=== PATIENT | female | born 1950 | race Caucasian/White ===

== ENCOUNTER 2023-11-11 20:40 | Emergency (ER) | payer MEDICARE, OTHER, SELFPAY ==
[2023-11-11] VITALS (7 sets, daily range): BP systolic 133–153; BP diastolic 68–94; PULSE 90–100; RESP 14; TEMP 37.4; O2SAT 95–97
--- NOTE | 2023-11-11 21:03 | XRR_ITS ---
PROCEDURE INFORMATION: Exam: XR Chest Exam date and time: 11/11/2023 9:19 PM Age: 73 years old Clinical indication: Fever and shortness of breath; Patient HX: SOB; Headache; Fever; Additional info: Fever aches SOB TECHNIQUE: Imaging protocol: Radiologic exam of the chest. Views: 1 view. COMPARISON: No relevant prior studies available. FINDINGS: Lungs: No consolidation. Nodular opacity overlying the left costophrenic angle and right midlung likely representing a calcified granuloma. Pleural spaces: Unremarkable. No pleural effusion. No pneumothorax. Heart/Mediastinum: Unremarkable. No cardiomegaly. Bones/joints: Unremarkable. XR/XR chest 1V portable [id number] IMPRESSION: No acute findings.
[2023-11-11] MEDS: sodium chloride 0.9% 500 ML 999 ML IV (21:53)
[2023-11-11] MEDS: ondansetron 2 mg/ML SDV 2 mL 4 MG IVP (21:53)
[2023-11-11 22:02] LABS: Basophils % 0.4 %; Eosinophils % 0.2 %; Hematocrit 42.7 % (36-47); Lymphocytes % 22.1 %; Mean Corpuscular HGB Conc 34.2 g/dL (30-55); Mean Corpuscular Hemoglobin 30.9 pg (27-33); Mean Corpuscular Volume 90.5 fl (85-98); Mean Platelet Volume 9.6 fL (7.4-10.4); Monocytes # 0.4 10^3/uL (0.2-0.9); Neutrophils # 3.18 10^3/uL (1.8-7.7); Neutrophils % 69.1 %; Nucleated Red Blood Cells % 0 %; Platelet Count 142 10^3/cmm (157-399); Red Blood Count 4.72 10^6/uL (3.85-5.65); Red Cell Distribution Width 12.2 % (12.1-15.1); White Blood Count 4.61 10^3/uL (3.29-11.43)
[2023-11-11 22:07] LABS: Bilirubin Urine Neg (Negative); Blood Urine Neg (Negative); Glucose Urine UA Norm (Normal); Ketones Urine 1+ (Negative); Leukocyte Esterase Urine Negative (Negative); Nitrate Urine Negative (Negative); Protein Urine Neg (Negative); Specific Gravity, Urine 1.005 (1.005-1.030); Urine Appearance Clear (CLEAR); Urine Color Yellow (Yellow); Urobilinogen Urine Neg (Negative); pH Urine 7 (5-7)
[2023-11-11 22:16] LABS: RBC Urine 0-4 /hpf (0-2)
[2023-11-11 22:17] LABS: Bacteria Urine 1+ /hpf; Mucus Urine TRACE /hpf; WBC Urine 0-4 /hpf (0-5)
[2023-11-11 22:21] LABS: Lactic Sepsis W/Reflex 0.9 mmol/L (0.5-2.2)
[2023-11-11 22:29] LABS: Alanine Aminotransferase 37 U/L (0-33); Albumin Level 4.5 g/dL (3.5-5.2); Alkaline Phosphatase 113 U/L (35-105); Aspartate Amino Transferase 51 U/L (0-32); Blood Urea Nitrogen 17 mg/dL (8-23); C Reactive Protein 16.2 mg/L (0.0-4.9); Calcium 9.6 mg/dL (8.5-10.5); Carbon Dioxide 25 mmol/L (22-29); Chloride 95 mmol/L (98-107); Creatinine Clr Calc Pharmacy 48.2978; Globulin 3.3 g/dL (1.3-4.6); Glucose 93 mg/dL (65-115); Osmolality Calculated 279 mOsm/kg (285-295); Sodium 134 mmol/L (136-145); Total Bilirubin 0.9 mg/dL (0.15-1.2); Total Protein 7.8 g/dL (6.6-8.7)
[2023-11-11 22:36] LABS: Procalcitonin 0.45 ng/mL (0-0.5)
--- NOTE | 2023-11-11 22:51 | ED_ITS ---
HPI - Fever 2 General: Chief Complaint: Fever Stated Complaint: headache fever aching lungs congested Time Seen by Provider: 11/11/23 20:55 History of Present Illness: 73-year-old female with a history of atr ial fibrillation. She has had fevers, body aches, mild cough, sweats for 5 days now. She has been outside. No known sick contacts. Physical Exam 2 Const: COMMON NORMALS: no acute distress GENERAL APPEARANCE: cooperative; not ill appearing and not frail appearing HENMT: COMMON NORMALS: normocephalic, atraumatic and Normal external nose present HEAD & SCALP: normocephalic and atraumatic FACE & SINUS: normal facial exam and face symmetric NOSE: Normal external nose present Eye: COMMON NORMALS: Equal, round and reactive pupils present and EOMs intact bilaterally PUPIL: Yes Equal, round and reactive pupils present Neck/C-Spine: GENERAL: Yes trachea midline Chest: CHEST: Yes Symmetrical chest wall rise Resp: COMMON NORMALS: normal respiratory effort, No retractions, No use of accessory muscles and clear to auscultation bilaterally AUSCULTATION: clear to auscultation bilaterally Cardio: COMMON NORMALS: regular rate and regular rhythm RATE: regular rate RHYTHM: regular rhythm GI: COMMON NORMALS: Normal to inspection, nondistended, normoactive bowel sounds present Extremity: COMMON NORMALS: no pedal edema Neuro: HEATHER COMA SCALE: document GCS findings [place] coma scale eye opening: Spontaneous [place] coma scale verbal response: Orientated Heather coma scale motor response: Obey commands Heather coma scale total score: 15 S ENSORY EXAM: Yes extremities (intact) Psych: COMMON NORMALS: speech normal SPEECH: Yes normal speech Course 2 Vital Signs: Vital signs: Vital Signs Temperature 99.3 F 11/11/23 20:44 Pulse Rate 98 11/11/23 22:30 Respiratory Rate 14 11/11/23 20:44 Blood Pressure 151/94 11/11/23 22:30 Pulse Oximetry 96 11/11/23 22:30 Oxygen Delivery Me thod Room Air 11/11/23 21:19 MDM - Fever Medical Decision Making Vitals been stable here. Low-grade temperature. Her platelet count is 142. Otherwise CBC normal. BMP is not remarkable. Mild elevation in her liver enzymes is present. Chest x-ray is negative. Urinalysis is nonacute. This patient does have a history of tick bites, with presentation, laboratory findings of thrombocytopenia, near low white blood cell count, and mild elevation in liver enzymes, tick fever would be in the differential diagnosis, as would viral illnesses. A respiratory panel is pending. She can call and get results from this. Tick panel will be sent. For now she will be covered with doxycycline. She knows to return for worsening symptoms. Lab Data 11/11/23 21:31 11/11/23 21: Radiology Impressions Chest X-Ray 11/11/23 21:03 IMPRESSION: No acute findings. Laboratory Results WBC 4.61 10^3/uL (3.29-11.43) 11/11/23 21: RBC 4.72 10^6/uL (3.85-5.65) 11/11/23 21: Hgb 14.60 g/dL (11.27-16.99) 11/11/23 21: Hct 42.7 % (36-47) 11/11/23 21: MCV 90.5 fl (85-98) 11/11/23 21: MCH 30.9 pg (27-33) 11/11/23 21: MCHC 34.2 g/dL (30-55) 11/11/23 21: RDW 12.2 % (12.1-15.1) 11/11/23 21: Plt Count 142 10^3/cmm (157-399) L 11/11/23 21: MPV 9.6 fL (7.4-10.4) 11/11/23 21: Neut % (Auto) 69.1 % 11/11/23 21: Lymph % (Auto) 22.1 % 11/11/23 21: [place] % (Auto) 8.0 % 11/11/23 21: Eos % (Auto) 0.2 % 11/11/23 21: Baso % (Auto) 0.4 % 11/11/23 21: Neut # (Auto) 3.18 10^3/uL (1.8-7.7) 11/11/23 21: Lymph # (Auto) 1.0 10^3/uL (0.8-4.8) 11/11/23 21: [place] # (Auto) 0.4 10^3/uL (0.2-0.9) 11/11/23 21:31 Eos # (Auto) 0.0 10^3/uL (0.0-0.8) 11/11/23 21:31 Baso # (Auto) 0.0 10^3/uL (0.0-0.1) 11/11/23 21:31 Nucleated RBC % (auto) 0 % 11/11/23 21:31 Nucleated RBCs # 0.0 /100WBC 11/11/23 21:31 Sodium 134 mmol/L (136-145) L 11/11/23 21:31 Potassium 4.0 mmol/L (3.5-5.1) 11/11/23 21:31 Chloride 95 mmol/L (98-107) L 11/11/23 21:31 Carbon Dioxide 25 mmol/L (22-29) 11/11/23 21:31 Anion Gap 18.0 (5-19) 11/11/23 21:31 BUN 17 mg/dL (8-23) 11/11/23 21:31 Creatinine 0.9 mg/dL (0.5-0.9) 11/11/23 21:31 GFR Calculation Not Reportable 11/11/23 21: Glucose 93 mg/dL (65-115) 11/11/23 21:31 Calculated Osmolality 279 mOsm/kg (285-295) L 11/11/23 21:31 Lactic Acid 0.9 mmol/L (0.5-2.2) 11/11/23 21: Calcium 9.6 mg/dL (8.5-10.5) 11/11/23 21:31 Total Bilirubin 0.9 mg/dL (0.15-1.2) 11/11/23 21:31 AST 51 U/L (0-32) H 11/11/23 21:31 ALT 37 U/L (0-33) H 11/11/23 21:31 Alkaline Phosphatase 113 U/L (35-105) H 11/11/23 21:31 C-Reactive Protein 16.2 mg/L (0.0-4.9) H 11/11/23 21:31 Total Protein 7.8 g/dL (6.6-8.7) 11/11/23 21:31 Albumin 4.5 g/dL (3.5-5.2) 11/11/23 21:31 Globulin 3.3 g/dL (1.3-4.6) 11/11/23 21:31 Procalcitonin 0.45 ng/mL (0-0.5) 11/11/23 21:31 Urine Color Yellow (Yellow) 11/11/23 21:58 Urine Appearance Clear (CLEAR) 11/11/23 21:58 Urine pH 7 (5-7) 11/11/23 21:58 Ur Specific [place] 1.005 (1.005-1.030) 11/11/23 21:58 Urine Protein Neg (Negative) 11/11/23 21:58 Urine Glucose (UA) Norm (Normal) 11/11/23 21:58 Urine Ketones 1+ (Negative) H 11/11/23 21:58 Urine Blood Neg (Negative) 11/11/23 21:58 Urine Nitrate Negative (Negative) 11/11/23 21:58 Urine Bilirubin Neg (Negative) 11/11/23 21:58 Urine Urobilinogen Neg mg/dL (Negative) 11/11/23 21:58 Ur Leukocyte Esterase Negative (Negative) 11/11/23 21:58 Urine RBC 0-4 /hpf (0-2) H 11/11/23 21:58 Urine WBC 0-4 /hpf (0-5) H 11/11/23 21:58 Ur Squamous Epith Cells 3-5 /hpf (0-5) 11/11/23 21:58 Amorphous Sediment Not Reportable 11/11/23 21:58 Urine Bacteria 1+ /hpf (NONE) H 11/11/23 21:58 Urine Mucus Trace /hpf 11/11/23 21:58 All radiology interpretation(s) finalized by discharge Discharge Plan Discharge Patient Disposition: Home Clinical Impression: Fever of unknown origin Condition: Stable Prescriptions: New doxycycline hyclate 100 mg tablet 100 mg PO BID 14 Days Qty: 28 0RF No Action [employer] Thyroid 90 mg tablet 97.5 mg PO DAILY Discharge Orders: Discharge ED (Routine); Ordered 11/11/23 Ordered By: Mike Moulton Referrals: Joe Mendes [Primary Care Provider] - 4-7 days Patient Instructions: Tick Bite (ED), Fever in Adults (ED), Opioid Safety, Pain Management Activity Restrictions/Additional Instructions: Your laboratory findings are somewhat consistent with tick fever. You will be placed on antibiotics for this. Take them the full 2 weeks. A tick panel has been sent with your blood work. Your doctor can find out these results in about 4 days. Return for any concerning symptoms, continued fevers after at least 4-5 more doses of antibiotics. Coding Level of Care Code ED Loading Machine Operator for Ulisses Esposito
[2023-11-11] MEDS: doxycycline 100 mg Tablet PO (23:15)
[2023-11-11 23:51] LABS: Adenovirus Not Detected (NOT DETECT); Chlamydia Pneumoniae Not Detected (NOT DETECT); Coronavirus 229E,HKU1,NL63,OC4 Not Detected (NOT DETECT); Human Metapneumovirus Not Detected (NOT DETECT); Human Rhinovirus/Enterovirus Not Detected (NOT DETECT); Influenza A Not Detected (NOT DETECT); Influenza A H1 Not Detected (NOT DETECT); Influenza A H1-2009 Not Detected (NOT DETECT); Influenza A H3 Not Detected (NOT DETECT); Influenza B Not Detected (NOT DETECT); Mycoplasma Pneumoniae Not Detected (NOT DETECT); Parainfluenza Virus Type 1 Not Detected (NOT DETECT); Parainfluenza Virus Type 2 Not Detected (NOT DETECT); Parainfluenza Virus Type 3 Not Detected (NOT DETECT); Parainfluenza Virus Type 4 Not Detected (NOT DETECT); Respiratory Syncytial Virus A Not Detected (NOT DETECT); Respiratory Syncytial Virus B Not Detected (NOT DETECT); SARS-COV-2 Not Detected (NOT DETECT)
[2023-11-13 13:11] LABS: Lyme AB Screen <0.90 index
[2023-11-16 17:04] LABS: RMSF IGG NOT DETECTED; RMSF IGM NOT DETECTED
[2023-11-18 21:55] LABS: E. Chaffeensis AB IGG <1:64; E. Chaffeensis AB IGM <1:20
== END 2023-11-11 23:42 | disposition home or self-care (01) ==
PROVIDERS: Emergency Medicine; Emergency Provider Emergency Medicine; PCP Family Medicine
DX: R50.9 Fever, unspecified (principal)
CPT/HCPCS: 36415; 71045; 80053; 81001; 83605; 84145; 85025; 86140; 86618; 86666; 86757; 87040; 87486; 87581; 87633; 96374; 99284; J2405; J7040